=== PATIENT | female | born 1985 | race African-American/Black ===

== ENCOUNTER 2016-11-26 12:15 | Emergency (ER) | payer BC ==
[~2016-11-26] VITALS: Ht 165.1 cm; Wt 54.9 kg
[~2016-11-26 12:15] MED LIST: AMBIEN 5 MG TABL5 M1 PO; FLEXERIL PO; IBUPROFEN 600600 M1 PO; KEPPRA 500 MG500 M1 PO; MOBIC15 MG PO; NOHOMEMEDICATIONS; PEPCID20 MG PO; PREDNISONE 20 M20 MG PO; TRAMADOL 50 MG50 MG PO; VALIUM5 MG PO
[2016-11-26 12:58] LABS: ABSOLUTE NEUTROPHILS 3.9 thou/uL (1.4-8.2); BASOPHILS 0.9 % (0.0-2.0); EOSINOPHILS 2.6 % (0.0-3.0); HEMATOCRIT 43.1 % (37.0-47.0); HEMOGLOBIN 14.5 gm/dL (12.0-15.0); LYMPHOCYTES 26.5 % (24.0-44.0); MCH 28.3 pg (26.0-34.0); MCHC 33.6 % (28.0-37.0); MCV 84.2 fL (80.0-100.0); MONOCYTES 4.1 % (1.0-8.0); PLATELET COUNT 285 thou/uL (150-400); POLYS 65.9 % (36.0-66.0); RBC 5.12 mil/uL (4.20-5.00); RDW 12.8 % (10.5-14.5); WBC 5.9 thou/uL (4.0-11.0)
[2016-11-26 13:01] LABS: MANUAL DIFF NO
[2016-11-26 13:06] LABS: CALCIUM 9.7 mg/dL (8.5-10.1); CREATININE 0.7 mg/dL (0.6-1.3); POTASSIUM 3.8 mmol/L (3.5-5.1)
[2016-11-26 13:10] LABS: ALBUMIN 4.8 g/dL (3.4-5.0); DIRECT BILIRUBIN 0.1 mg/dL (<0.1-0.3); TOTAL BILIRUBIN 0.5 mg/dL (<0.1-1.0); TOTAL PROTEIN 8.9 g/dL (6.4-8.2)
[2016-11-26] MEDS ORDERED: VALIUM5 MG PO (13:13)
[2016-11-26 13:57] VITALS: BP 106/75
[2016-12-10] MEDS ORDERED: ONDANSETRON HCL4 M2 PO (12:30)
[2016-12-10] MEDS ORDERED: LEVSIN0.125 MG PO (12:30)
== END 2016-11-26 13:57 | disposition home or self-care (01) ==
LOC: ER 12:15
PROVIDERS: Emergency Medicine
DX: R53.83 Other fatigue (principal); G47.8 Other sleep disorders; Z88.6 Allergy status to analgesic agent; Z88.1 Allergy status to other antibiotic agents

== ENCOUNTER 2017-01-24 14:52 | Emergency (ER) | payer BC ==
[~2017-01-24] VITALS: Ht 165.1 cm; Wt 56.7 kg
--- NOTE | ~2017-01-24 | EKG ---
[place] [address] [facility] [place] [address] ELECTROCARDIOGRAM REPORT Name: MACARENA NEWTON Room #: 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 01/25/17 0911 [id number] All Singh MD, [facility] /EPI
[~2017-01-24 14:52] MED LIST changes: +LEVSIN0.125 MG PO; +ONDANSETRON HCL4 M2 PO
[2017-01-24 15:50] LABS: URINE BILIRUBIN NEGATIVE (Negative); URINE BLOOD NEGATIVE (Negative); URINE COLOR YELLOW; URINE GLUCOSE-RANDOM* NEGATIVE (Negative); URINE KETONES NEGATIVE (Negative); URINE NITRITE NEGATIVE (Negative); URINE PROTEIN (DIPSTICK) NEGATIVE (Negative); URINE SPECIFIC GRAVITY 1.015 (1.003-1.035); URINE UROBILINOGEN 0.2 E.U./dl (0.2-1.0)
[2017-01-24 16:00] LABS: AMP/METHAMP Negative (Negative); BARBITURATES Negative (Negative); BENZODIAZEPINES Negative (Negative); COCAINE Negative (Negative); METHADONE Negative (Negative); OPIATES Negative (Negative); PCP Negative (Negative); THC Negative (Negative)
[2017-01-24 16:01] LABS: ABSOLUTE NEUTROPHILS 4.6 thou/uL (1.4-8.2); BASOPHILS 0.9 % (0.0-2.0); EOSINOPHILS 1.7 % (0.0-3.0); HEMATOCRIT 40.4 % (37.0-47.0); HEMOGLOBIN 13.7 gm/dL (12.0-15.0); LYMPHOCYTES 23.9 % (24.0-44.0); MCH 28.7 pg (26.0-34.0); MCV 84.5 fL (80.0-100.0); MONOCYTES 5.3 % (1.0-8.0); PLATELET COUNT 253 thou/uL (150-400); POLYS 68.2 % (36.0-66.0); RBC 4.78 mil/uL (4.20-5.00); RDW 13.4 % (10.5-14.5); WBC 6.7 thou/uL (4.0-11.0)
[2017-01-24 16:02] LABS: MANUAL DIFF NO
[2017-01-24 16:15] LABS: CALCIUM 9.1 mg/dL (8.5-10.1); CREATININE 0.7 mg/dL (0.6-1.3); POTASSIUM 3.7 mmol/L (3.5-5.1)
[2017-01-24 16:19] LABS: ALBUMIN 4.2 g/dL (3.4-5.0); TOTAL BILIRUBIN 0.5 mg/dL (<0.1-1.0)
== END 2017-01-24 17:23 | disposition home or self-care (01) ==
LOC: ER 14:52
PROVIDERS: Physician Assistant
DX: R42 Dizziness and giddiness (principal); I95.1 Orthostatic hypotension; Z88.1 Allergy status to other antibiotic agents; Z88.6 Allergy status to analgesic agent

== ENCOUNTER 2017-06-23 18:46 | Emergency (ER) | payer BC ==
[~2017-06-23] VITALS: Ht 165.1 cm; Wt 54.4 kg
[2017-06-23] MEDS ORDERED: NAPROSYN500 MG PO (21:08)
[2017-06-23 21:15] VITALS: BP 102/55
== END 2017-06-23 21:18 | disposition home or self-care (01) ==
LOC: ER 18:46
DX: S86.912A Strain of unspecified muscle(s) and tendon(s) at lower leg level, left leg, initial encounter (principal); G40.909 Epilepsy, unspecified, not intractable, without status epilepticus; Z88.1 Allergy status to other antibiotic agents; Z88.6 Allergy status to analgesic agent; X58.XXXA Exposure to other specified factors, initial encounter; Y93.89 Activity, other specified; Y92.89 Other specified places as the place of occurrence of the external cause; Y99.8 Other external cause status

== ENCOUNTER 2017-06-29 05:48 | Emergency (ER) | payer BC ==
[~2017-06-29] VITALS: Ht 165.1 cm; Wt 54.4 kg
[~2017-06-29 05:48] MED LIST changes: +NAPROSYN500 MG PO
[2017-06-29 06:25] LABS: ABSOLUTE NEUTROPHILS 4.9 thou/uL (1.4-8.2); BASOPHILS 0.6 % (0.0-2.0); HEMOGLOBIN 13.6 gm/dL (12.0-15.0); LYMPHOCYTES 19.6 % (24.0-44.0); MCH 28.8 pg (26.0-34.0); MCHC 33.9 g/dL (28.0-37.0); MCV 85.1 fL (80.0-100.0); MONOCYTES 3.9 % (1.0-8.0); PLATELET COUNT 254 thou/uL (150-400); POLYS 73.9 % (36.0-66.0); RDW 12.7 % (10.5-14.5); WBC 6.7 thou/uL (4.0-11.0)
[2017-06-29 06:36] LABS: MANUAL DIFF NO
[2017-06-29 06:45] LABS: CALCIUM 9.8 mg/dL (8.5-10.1); CREATININE 0.9 mg/dL (0.6-1.0); POTASSIUM 3.7 mmol/L (3.5-5.1)
[2017-06-29 06:50] LABS: ALBUMIN 4.6 g/dL (3.4-5.0); TOTAL BILIRUBIN 0.5 mg/dL (<0.1-1.0); TOTAL PROTEIN 8.4 g/dL (6.4-8.2)
[2017-06-29] MEDS ORDERED: MIRALAX17 GM PO (08:02)
[2017-06-29] MEDS ORDERED: SENOKOT-S1 TA1 PO (08:02)
[2017-06-29 08:18] VITALS: BP 120/64
== END 2017-06-29 08:15 | disposition home or self-care (01) ==
LOC: ER 05:48
PROVIDERS: Emergency Medicine
DX: K59.00 Constipation, unspecified (principal); G40.909 Epilepsy, unspecified, not intractable, without status epilepticus; Z88.1 Allergy status to other antibiotic agents; Z88.6 Allergy status to analgesic agent

== ENCOUNTER 2017-12-09 11:56 | Emergency (ER) | payer OTHER ==
[~2017-12-09] VITALS: Ht 165.1 cm; Wt 57.1 kg
[~2017-12-09 11:56] MED LIST changes: +MIRALAX17 GM PO; +SENOKOT-S1 TA1 PO
[2017-12-09 12:18] LABS: URINE BILIRUBIN NEGATIVE (Negative); URINE BLOOD NEGATIVE (Negative); URINE CLARITY CLEAR; URINE COLOR YELLOW; URINE GLUCOSE-RANDOM* NEGATIVE (Negative); URINE KETONES NEGATIVE (Negative); URINE LEUKOCYTES NEGATIVE (Negative); URINE NITRITE NEGATIVE (Negative); URINE PROTEIN (DIPSTICK) NEGATIVE (Negative); URINE SPECIFIC GRAVITY 1.015 (1.005-1.035); URINE UROBILINOGEN 0.2 E.U./dl (0.2-1.0)
[2017-12-09] MEDS ORDERED: NORFLEX100 MG PO (12:39)
[2017-12-09] MEDS ORDERED: PREDNISONE 10 M10 MG PO (12:39)
== END 2017-12-09 13:31 | disposition home or self-care (01) ==
LOC: ER 11:56
PROVIDERS: Emergency Medicine
DX: M54.32 Sciatica, left side (principal); Z88.6 Allergy status to analgesic agent; Z88.1 Allergy status to other antibiotic agents

== ENCOUNTER 2018-01-29 19:16 | Emergency (ER) | payer OTHER ==
[~2018-01-29] VITALS: Ht 165.1 cm; Wt 56.7 kg
[~2018-01-29 19:16] MED LIST changes: +NORFLEX100 MG PO; +PREDNISONE 10 M10 MG PO
[2018-01-29] MEDS ORDERED: MOBIC15 MG PO (20:46)
[2018-01-29] MEDS ORDERED: LIORESAL 10 MG10 MG PO (20:46)
== END 2018-01-29 21:04 | disposition home or self-care (01) ==
LOC: ER 19:16
DX: S86.812A Strain of other muscle(s) and tendon(s) at lower leg level, left leg, initial encounter (principal); Z88.6 Allergy status to analgesic agent; Z88.1 Allergy status to other antibiotic agents; X58.XXXA Exposure to other specified factors, initial encounter; Y93.89 Activity, other specified; Y92.89 Other specified places as the place of occurrence of the external cause; Y99.8 Other external cause status

== ENCOUNTER 2018-04-16 18:16 | Emergency (ER) | payer OTHER ==
[~2018-04-16] VITALS: Ht 165.1 cm; Wt 58.5 kg
[~2018-04-16 18:16] MED LIST changes: +LIORESAL 10 MG10 MG PO
[2018-04-16] MEDS ORDERED: HYDROCODONE-AP1 EAC6 PO (19:26)
[2018-04-16] MEDS ORDERED: CYCLOBENZAPRINE5 MG PO (19:26)
[2018-04-16 20:05] VITALS: BP 110/66
== END 2018-04-16 20:09 | disposition home or self-care (01) ==
LOC: ER 18:16
DX: M54.12 Radiculopathy, cervical region (principal); M62.838 Other muscle spasm; M25.512 Pain in left shoulder; Z88.1 Allergy status to other antibiotic agents

== ENCOUNTER 2018-10-23 11:59 | Emergency (ER) | payer OTHER ==
[~2018-10-23] VITALS: Ht 165.1 cm; Wt 59.0 kg
[~2018-10-23 11:59] MED LIST changes: +CYCLOBENZAPRINE5 MG PO; +HYDROCODONE-AP1 EAC6 PO
[2018-10-23 13:31] LABS: BASOPHILS 0.5 % (0.0-2.0); EOSINOPHILS 0.1 % (0.0-3.0); HEMATOCRIT 39.9 % (37.0-47.0); HEMOGLOBIN 13.6 gm/dL (12.0-15.0); LYMPHOCYTES 7.2 % (24.0-44.0); MCH 28.9 pg (26.0-34.0); MCHC 34.1 g/dL (28.0-37.0); MCV 84.6 fL (80.0-100.0); MONOCYTES 2.4 % (1.0-8.0); PLATELET COUNT 278 thou/uL (150-400); POLYS 89.8 % (36.0-66.0); RBC 4.71 mil/uL (4.20-5.00); RDW 12.8 % (10.5-14.5)
[2018-10-23 13:37] LABS: CALCIUM 9.3 mg/dL (8.5-10.1); CREATININE 0.8 mg/dL (0.6-1.0); POTASSIUM 3.9 mmol/L (3.5-5.1)
[2018-10-23 13:43] LABS: ALBUMIN 4.8 g/dL (3.4-5.0); TOTAL BILIRUBIN 0.6 mg/dL (<0.1-1.0); TOTAL PROTEIN 8.7 g/dL (6.4-8.2)
[2018-10-23] MEDS ORDERED: ZOFRAN ODT4 MG PO (14:44)
[2018-10-23 16:10] VITALS: BP 120/64
== END 2018-10-23 16:12 | disposition home or self-care (01) ==
LOC: ER 11:59
PROVIDERS: Physician Assistant
DX: R11.2 Nausea with vomiting, unspecified (principal); F10.129 Alcohol abuse with intoxication, unspecified; R19.7 Diarrhea, unspecified; Z98.890 Other specified postprocedural states; Z88.1 Allergy status to other antibiotic agents; Z88.6 Allergy status to analgesic agent

== ENCOUNTER 2018-12-07 07:03 | Emergency (ER) | payer OTHER ==
[~2018-12-07] VITALS: Ht 165.1 cm; Wt 57.6 kg
[~2018-12-07 07:03] MED LIST changes: +ZOFRAN ODT4 MG PO
[2018-12-07 07:04] VITALS: BP 102/56
[2018-12-07] MEDS ORDERED: FLEXERIL PO (07:26)
== END 2018-12-07 07:45 | disposition home or self-care (01) ==
LOC: ER 07:03
DX: S16.1XXA Strain of muscle, fascia and tendon at neck level, initial encounter (principal); Z98.890 Other specified postprocedural states; Z88.1 Allergy status to other antibiotic agents; Z88.6 Allergy status to analgesic agent; X58.XXXA Exposure to other specified factors, initial encounter; Y93.89 Activity, other specified; Y92.89 Other specified places as the place of occurrence of the external cause; Y99.8 Other external cause status

== ENCOUNTER → 2020-05-02 | Outpatient (CLI) | payer OTHER | LOC: ULTRA 11:45 | PROVIDERS: ATTEND Nurse Practitioner | DX: N83.01 Follicular cyst of right ovary (principal) ==